=== PATIENT | female | born 1950 | race Caucasian/White ===

== ENCOUNTER 2019-07-16 10:44 | Emergency (ER) | payer MEDICARE ==
[2019-07-16 10:59] VITALS: BP 156/64; PULSE 68
--- NOTE | 2019-07-16 11:06 | EDM.PDOC ---
ED HPI GENERAL MEDICAL PROBLEM - General Chief Complaint: General Stated Complaint: RT SHOULDER INJURY Time Seen by Provider: 07/16/19 11:02 Source of Information: Reports: Patient, Family, RN Notes Reviewed History Limitations: Reports: No Limitations - History of Present Illness INITIAL COMMENTS - FREE TEXT/NARRATIVE: 69-year-old female presents emergency department today following a fall at home , she recently had shoulder surgery done on June 25 to her right shoulder unfortunately she tripped on something at home and fell into the wall injuring her right shoulder. No loss of consciousness complains of no other pain or injury Right Shoulder Pain Score (Numeric/FACES): 6 - Related Data Allergies Allergy/AdvReac Type Severity Reaction Status Date / Time Epqsdht-Edt-Rnp Reductase Allergy Severe Anaphylactic Verified 12/07/18 12:52 Inhibitor Shock simvastatin Allergy Rash Verified 12/07/18 12:07 Sulfa (Sulfonamide Allergy Rash Verified 12/07/18 12:07 Antibiotics) cyclobenzaprine AdvReac Dizziness Verified 12/07/18 12:52 [From Flexeril] hydrocodone AdvReac Confusion Verified 12/07/18 12:07 Home Meds: Home Meds Acetaminophen [Pain Relief Extra Strength] 1,000 mg PO Q6H PRN 07/29/14 [History ] Aspirin [Adult Low Dose Aspirin EC] 81 mg PO DAILY 07/29/14 [History] glipiZIDE [Glipizide] 5 mg PO DAILY 07/29/14 [History] Levothyroxine [Synthroid] 100 mcg PO ACBREAKFAST 06/05/16 [History] Lisinopril 10 mg PO DAILY 06/05/16 [History] metFORMIN [Glucophage] 500 mg PO BIDMEALS 03/18/17 [History] Diazepam [Valium] 5 mg PO ASDIRECTED PRN 11/27/18 [History] Gabapentin [Neurontin] 400 mg PO BEDTIME PRN 11/27/18 [History] Latanoprost/Pf [Latanoprost 0.005% Eye Drop] 1 drop EYEBOTH DAILY 11/27/18 [ History] [place]-3 Fatty Acids [[place]-3] 1,000 mg PO DAILY 11/27/18 [History] Sennosides/Docusate Sodium [Sennosides-Docusate Sodium] 2 tab PO BID PRN [History] Timolol Maleate [Timoptic 0.5% Opth Soln] 1 drop EYEBOTH DAILY 11/27/18 [History ] Past Medical History HEENT History: Reports: Glaucoma Cardiovascular History: Reports: Hypertension Genitourinary History: Reports: Other (See Below) Other Genitourinary History: elevated enzymes secondary to metformin use [employer]ENTICE History: Reports: Other (See Below) 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 Musculoskeletal History: Reports: Arthritis, Osteoarthritis Endocrine/Metabolic History: Reports: Diabetes, Type II, Other (See Below) Other Endocrine/Metabolic History: tyroid disease - Infectious Disease History Infectious Disease History: Reports: Chicken Pox, Measles, Mumps - Past Surgical History HEENT Surgical History: Reports: Tonsillectomy GI Surgical History: Reports: Cholecystectomy Musculoskeletal Surgical History: Reports: Knee Replacement Dermatological Surgical History: Reports: None Social & Family History - Family History HEENT: Reports: Cataract, Glaucoma Cardiac: Reports: Heart Failure : Reports: Cystic Kidney Disease Musculoskeletal: Reports: Arthritis Oncologic: Reports: Brain, Colon - Tobacco Use Smoking Status *Q: Never Smoker - Caffeine Use Caffeine Use: Reports: Coffee - Recreational Drug Use Recreational Drug Use: No ED ROS GENERAL - Review of Systems Review Of Systems: See Below Constitutional: Reports: No Symptoms Respiratory: Reports: No Symptoms Cardiovascular: Reports: No Symptoms GI/Abdominal: Reports: No Symptoms Musculoskeletal: Reports: Shoulder Pain ED EXAM, GENERAL - Physical Exam Exam: See Below Exam Limited By: No Limitations General Appearance: Alert, WD/WN, No Apparent Distress Respiratory/Chest: No Respiratory Distress Peripheral Pulses: 2+: Radial (R) Extremities: Normal Inspection, Non-Tender, Limited Range of Motion Course - Vital Signs Last Recorded V/S: Last Vital Signs Temp 95.9 F 07/16/19 10:58 Pulse 68 07/16/19 10:58 Resp 16 07/16/19 10:58 BP 156/64 H 07/16/19 10:58 Pulse Ox 100 07/16/19 10:58 Departure - Departure Time of Disposition: 12:08 Disposition: Home, Self-Care 01 Condition: Fair Clinical Impression: Contusion of right shoulder Qualifiers: Encounter type: initial encounter Qualified Code(s): S40.011A - Contusion of right shoulder, initial encounter - Discharge Information Referrals: Orestes Mcgovern MD [Primary Care Provider] - Forms: ED Department Discharge Care Plan Goals: Continue to use her pain medications aren't prescribed, Please followup with your primary care provider in 3-5 days if not better, please call return to the emergency department with worsening of symptoms. Keep your follow-up appointment with orthopedics - Assessment/Plan Plan: Assessment Acuity = acute Site and laterality = right shoulder contusion Etiology = secondary to fall Manifestations = none Location of injury = Home Lab values = x-ray reveals no acute process Plan She does have a follow-up with orthopedics next week, continue to use her pain medication as prescribed This note was dictated using [employer] recognition software please call with any questions on syntax or grammar.
--- NOTE | 2019-07-16 12:05 | CRLCR ---
Indication: Injury and pain Technique: Right shoulder 2 views Comparison: None Findings: Bones: Alignment is normal. No fractures or bone lesions. 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 Arthritis is in the AC joint. Soft tissues: Unremarkable. Impression: No sign of acute injury. Dictated by Miquel Barr MD @ Jul 16 2019 11:59AM Signed by Dr. Miquel Barr @ Jul 16 2019 12:04PM
== END 2019-07-16 12:39 | disposition home or self-care (01) ==
LOC: JP.ED 10:44
DX: S40.011A Contusion of right shoulder, initial encounter (principal); I10 Essential (primary) hypertension; E11.9 Type 2 diabetes mellitus without complications; Z88.8 Allergy status to other drugs, medicaments and biological substances; Z88.2 Allergy status to sulfonamides; Z88.5 Allergy status to narcotic agent; Z79.82 Long term (current) use of aspirin; Z79.84 Long term (current) use of oral hypoglycemic drugs; Z79.899 Other long term (current) drug therapy; W01.0XXA Fall on same level from slipping, tripping and stumbling without subsequent striking against object, initial encounter; Y92.009 Unspecified place in unspecified non-institutional (private) residence as the place of occurrence of the external cause
CPT/HCPCS: 73030-RT; 99282; 99283-25

== ENCOUNTER 2023-08-15 13:21 | Inpatient (IN) | payer MEDICARE ==
[2023-08-15 13:43] LABS: BASOPHILS ABSOLUTE AUTO 0.04 K/uL (0.00-0.10); BASOPHILS PERCENT AUTO 0.7 % (0.1-1.3); EOSINOPHILS ABSOLUTE AUTO 0.06 K/uL (0.00-0.40); HEMATOCRIT 27.5 % (34.3-46.0); HEMOGLOBIN 7.8 g/dL (11.2-15.5); IMMATURE GRAN ABSOLUTE AUTO 0.07 K/uL (0.00-0.23); IMMATURE GRAN PERCENT AUTO 1.1 % (0.0-0.7); LYMPHOCYTES ABSOLUTE AUTO 0.74 K/uL (0.8-3.3); LYMPHOCYTES PERCENT AUTO 12.2 % (11.4-47.7); MEAN CORPUSCULAR HEMOGLOBIN 19.5 pg (31.6-35.5); MEAN CORPUSCULAR HGB CONC 28.4 g/dL (31.6-35.5); MEAN CORPUSCULAR VOLUME 68.9 fL (81.4-99.0); MONOCYTES ABSOLUTE AUTO 0.52 K/uL (0.20-0.90); MONOCYTES PERCENT AUTO 8.5 % (3.3-12.6); NEUTROPHILS ABSOLUTE AUTO 4.66 K/uL (1.0-7.6); NEUTROPHILS PERCENT AUTO 76.5 % (40.0-78.1); PLATELET COUNT,PLT 314 K/uL (130-375); WHITE BLOOD CELL COUNT,WBC 6.1 K/uL (3.2-11.0)
[2023-08-15 13:59] LABS: INR 3.2; PROTHROMBIN TIME 30.2 sec (9.2-10.6)
[2023-08-15 14:04] LABS: A/G RATIO 1.1 (1.2-2.2); ALANINE AMINOTRANSFERASE,ALT 13 U/L (12-78); ALBUMIN 3.6 g/dL (3.4-5.0); ALKALINE PHOSPHATASE 58 U/L (46-116); ANION GAP 15.8 mmol/L (5.0-14.0); ASPARTATE AMNIOTRANSFERASE,AST 22 U/L (15-37); BILIRUBIN TOTAL 0.7 mg/dL (0.2-1.0); BLOOD UREA NITROGEN,BUN 15 mg/dL (7-18); CALCIUM 8.6 mg/dL (8.5-10.1); CARBON DIOXIDE,CO2 27 mmol/L (21-32); CHLORIDE,CL 100 mmol/L (100-108); CREATININE 0.9 mg/dL (0.6-1.0); ESTIMATED GFR 67 mL/min (>60); GLUCOSE RANDOM 100 mg/dL (74-106); POTASSIUM,K 3.8 mmol/L (3.6-5.2); SODIUM,NA 139 mmol/L (140-148)
[2023-08-15 14:08] LABS: RED BLOOD CELL COUNT 3.99 M/uL (3.77-5.24)
[2023-08-15 14:19] LABS: IRON,FE 15 ug/dL (50-170); PERCENT FE SATURATION 3 % (20-55); TOTAL IRON BINDING CAPACITY 436 ug/dl (250-450)
[2023-08-15 14:42] LABS: APPEARANCE,URINE SLIGHTLY CLOUDY (CLEAR); BACTERIA,URINE MANY; BILIRUBIN,URINE NEGATIVE (NEGATIVE); COLOR,URINE YELLOW (YELLOW); EPITHELIAL CELLS,URINE RARE; GLUCOSE,URINE NEGATIVE (NEGATIVE); KETONES,URINE TRACE mg/dL (NEGATIVE); LEUKOCYTE ESTERASE,URINE TRACE (NEGATIVE); NITRITE,URINE POSITIVE (NEGATIVE); OCCULT BLOOD,URINE TRACE-INTACT (NEGATIVE); PROTEIN,URINE NEGATIVE (NEGATIVE); RBC,URINE 0-5 (0-5); UROBILINOGEN,URINE 0.2 EU/dL (0.2-1.0)
[2023-08-15 14:43] LABS: AMORPHOUS SEDIMENT,URINE NOT SEEN; MUCUS,URINE NOT SEEN
[2023-08-15] MEDS ORDERED: Sodium Chloride 0.9% 10 ML Syringe FLUSH PRN (15:50)
[2023-08-15] MEDS ORDERED: Glucose Gel 15 GM in 37.5 GM Tube PO PRN (15:50)
[2023-08-15] MEDS ORDERED: 50% Dextrose in Water 50 ML Syringe IV PRN (15:50)
[2023-08-15] MEDS ORDERED: Ondansetron 4 MG/2 ML SDV IV PRN (15:50)
[2023-08-15] MEDS ORDERED: Gabapentin 300 MG Cap PO PRN (15:53)
[2023-08-15] MEDS ORDERED: Sodium Ferric Gluconate Cmplex 250 MG in Sodium Chloride 0.9% 100 ML IV ONE (16:30)
[2023-08-15] MEDS: Ferrous Sulfate 325 MG Tab PO SCH (16:57)
[2023-08-15] MEDS: metFORMIN 500 MG Tab PO SCH (16:58)
[2023-08-15] MEDS: Pantoprazole 40 MG Vial IV SCH (17:00)
[2023-08-15] MEDS: Insulin Lispro 100 Unit/ML 3 ML KwikPen SUBCUT SCH ×2 (17:41→20:56)
[2023-08-15] MEDS: Sodium Chloride 0.9% 1,000 ML IV SCH (18:16)
[2023-08-15] MEDS: Acetaminophen 325 MG Tab PO PRN (22:59)
[2023-08-16] MEDS: Sodium Chloride 0.9% 1,000 ML IV SCH (01:54)
[2023-08-16] MEDS: Pantoprazole 40 MG Vial IV SCH ×2 (04:48→14:57)
[2023-08-16 04:58] LABS: HEMATOCRIT 31.3 % (34.3-46.0); HEMOGLOBIN 9.1 g/dL (11.2-15.5); MEAN CORPUSCULAR HEMOGLOBIN 20.8 pg (31.6-35.5); MEAN CORPUSCULAR HGB CONC 29.1 g/dL (31.6-35.5); MEAN CORPUSCULAR VOLUME 71.6 fL (81.4-99.0); RED BLOOD CELL COUNT 4.37 M/uL (3.77-5.24)
[2023-08-16 05:12] LABS: CALCIUM 8.1 mg/dL (8.5-10.1); CREATININE 0.9 mg/dL (0.6-1.0); EST CRCL DRUG DOSING (CG) 46.64 mL/min; POTASSIUM,K 3.2 mmol/L (3.6-5.2)
[2023-08-16 05:15] LABS: INR 2.4; PROTHROMBIN TIME 23.1 sec (9.2-10.6)
[2023-08-16 05:18] LABS: ANION GAP 15.2 mmol/L (5.0-14.0)
[2023-08-16] MEDS: Amoxicillin/Clavulanate K 500-125 MG Tab PO SCH ×2 (06:21→17:41)
[2023-08-16] MEDS ORDERED: Levothyroxine 100 MCG Tab PO SCH (07:30)
[2023-08-16] MEDS: Ferrous Sulfate 325 MG Tab PO SCH ×2 (08:00→17:41)
[2023-08-16] MEDS: metFORMIN 500 MG Tab PO SCH ×2 (08:00→17:41)
[2023-08-16] MEDS: Levothyroxine 112 MCG Tab PO SCH (08:00)
[2023-08-16] MEDS: Aspirin 81 MG Tab.EC PO SCH (08:00)
[2023-08-16] MEDS: Metoprolol Succinate 25 MG Tab.ER PO SCH (08:01)
[2023-08-16] MEDS: Timolol Maleate 0.5% Ophth Soln 5 ML Bottle EYEBOTH SCH (08:01)
[2023-08-16] MEDS: Insulin Lispro 100 Unit/ML 3 ML KwikPen SUBCUT SCH ×4 (08:06→21:14)
[2023-08-16] MEDS ORDERED: Potassium Chloride 20 MEQ Tab.ER PO ONE (08:30)
[2023-08-16] MEDS ORDERED: Sodium Ferric Gluconate Cmplex 250 MG in Sodium Chloride 0.9% 100 ML IV ONE (09:00)
[2023-08-16] MEDS ORDERED: Lisinopril 10 MG Tab PO SCH (09:00)
[2023-08-16] MEDS ORDERED: Lisinopril 5 MG Tab PO SCH (09:00)
[2023-08-16] MEDS ORDERED: Phytonadione 1 MG in Sodium Chloride 0.9% 50 ML IV ONE (11:15)
[2023-08-16] MEDS: Acetaminophen 325 MG Tab PO PRN (18:10)
[2023-08-16] MEDS ORDERED: Gabapentin 300 MG Cap PO SCH (21:00)
[2023-08-17] MEDS: Pantoprazole 40 MG Vial IV SCH (04:13)
[2023-08-17 05:24] LABS: HEMATOCRIT 28.4 % (34.3-46.0); HEMOGLOBIN 8.2 g/dL (11.2-15.5); MEAN CORPUSCULAR VOLUME 72.6 fL (81.4-99.0); RED BLOOD CELL COUNT 3.91 M/uL (3.77-5.24); WHITE BLOOD CELL COUNT,WBC 6.9 K/uL (3.2-11.0)
[2023-08-17 05:38] LABS: CALCIUM 8.4 mg/dL (8.5-10.1); EST CRCL DRUG DOSING (CG) 41.97 mL/min; POTASSIUM,K 3.5 mmol/L (3.6-5.2)
[2023-08-17 05:39] LABS: INR 1.5; PROTHROMBIN TIME 14.9 sec (9.2-10.6)
[2023-08-17 05:47] LABS: ANION GAP 14.5 mmol/L (5.0-14.0)
[2023-08-17] MEDS: Amoxicillin/Clavulanate K 500-125 MG Tab PO SCH (05:52)
[2023-08-17 06:09] LABS: MEAN CORPUSCULAR HGB CONC 28.9 g/dL (31.6-35.5)
[2023-08-17] MEDS: Insulin Lispro 100 Unit/ML 3 ML KwikPen SUBCUT SCH ×2 (07:42→12:19)
[2023-08-17] MEDS: Levothyroxine 112 MCG Tab PO SCH (07:43)
[2023-08-17] MEDS ORDERED: Potassium Chloride 20 MEQ Tab.ER PO ONE (09:00)
[2023-08-17] MEDS: Ferrous Sulfate 325 MG Tab PO SCH (09:09)
[2023-08-17] MEDS: Metoprolol Succinate 25 MG Tab.ER PO SCH (09:09)
[2023-08-17] MEDS: metFORMIN 500 MG Tab PO SCH (09:09)
[2023-08-17] MEDS: Aspirin 81 MG Tab.EC PO SCH (09:10)
[2023-08-17] MEDS: Timolol Maleate 0.5% Ophth Soln 5 ML Bottle EYEBOTH SCH (09:10)
[2023-08-17 11:12] VITALS: BP 141/72; PULSE 88
== END 2023-08-17 15:45 | disposition home or self-care (01) | DRG 812 ==
LOC: JP.ED 13:21 → JP.MS 15:16 → OBSVTOIN 08-16 10:41
PROVIDERS: ADMIT Hospitalist; ATTEND Hospitalist
DX: D50.9 Iron deficiency anemia, unspecified (principal); I48.0 Paroxysmal atrial fibrillation; N30.90 Cystitis, unspecified without hematuria; H40.9 Unspecified glaucoma; I12.9 Hypertensive chronic kidney disease with stage 1 through stage 4 chronic kidney disease, or unspecified chronic kidney disease; N18.9 Chronic kidney disease, unspecified; E11.22 Type 2 diabetes mellitus with diabetic chronic kidney disease; E03.9 Hypothyroidism, unspecified; Z96.653 Presence of artificial knee joint, bilateral; Z96.642 Presence of left artificial hip joint; Z79.01 Long term (current) use of anticoagulants; Z79.899 Other long term (current) drug therapy; Z79.82 Long term (current) use of aspirin; Z79.84 Long term (current) use of oral hypoglycemic drugs; Z88.2 Allergy status to sulfonamides; Z88.8 Allergy status to other drugs, medicaments and biological substances; Z91.041 Radiographic dye allergy status; Z88.5 Allergy status to narcotic agent; Z90.89 Acquired absence of other organs; Z90.49 Acquired absence of other specified parts of digestive tract; Z11.52 Encounter for screening for COVID-19
CPT/HCPCS: 36415; 36430; 70450; 70450-26; 73502-26-LT; 73502-LT; 80048; 80053; 81001; 82272; 82947; 83550; 85018; 85025; 85027; 85610; 86850; 86900; 86901; 86920; 86922; 87086; 87088; 87186; 97161-GP; 99222; 99232; 99238; A9270-GY; C9113; J1815; J2916; J3430; J3490; J7030; P9016; U0002

== ENCOUNTER 2023-08-20 09:37 | Day surgery (SDC) | payer MEDICARE ==
[2023-08-20 09:44] LABS: HEMATOCRIT 36.7 % (34.3-46.0); HEMOGLOBIN 10.4 g/dL (11.2-15.5); MEAN CORPUSCULAR HEMOGLOBIN 21.3 pg (31.6-35.5); MEAN CORPUSCULAR HGB CONC 28.3 g/dL (31.6-35.5); MEAN CORPUSCULAR VOLUME 75.1 fL (81.4-99.0); RED BLOOD CELL COUNT 4.89 M/uL (3.77-5.24); WHITE BLOOD CELL COUNT,WBC 9.3 K/uL (3.2-11.0)
[2023-08-20] MEDS ORDERED: Propofol 200 MG/20 ML SDV ONE (09:53)
[2023-08-20] MEDS ORDERED: fentaNYL 50 MCG/ML SDV ONE (09:53)
[2023-08-20] MEDS ORDERED: Lactated Ringers 1,000 ML IV SCH (10:00)
[2023-08-20 10:02] LABS: INR 1.3; PROTHROMBIN TIME 12.7 sec (9.2-10.6)
[2023-08-20 10:25] LABS: A/G RATIO 1.2 (1.2-2.2); ALANINE AMINOTRANSFERASE,ALT 18 U/L (12-78); ALBUMIN 4.3 g/dL (3.4-5.0); ALKALINE PHOSPHATASE 62 U/L (46-116); ANION GAP 19.3 mmol/L (5.0-14.0); ASPARTATE AMNIOTRANSFERASE,AST 31 U/L (15-37); BILIRUBIN TOTAL 1.1 mg/dL (0.2-1.0); BLOOD UREA NITROGEN,BUN 6 mg/dL (7-18); CALCIUM 9.1 mg/dL (8.5-10.1); CARBON DIOXIDE,CO2 25 mmol/L (21-32); CHLORIDE,CL 100 mmol/L (100-108); EST CRCL DRUG DOSING (CG) 41.97 mL/min; ESTIMATED GFR 59 mL/min (>60); GLUCOSE RANDOM 76 mg/dL (74-106); POTASSIUM,K 3.3 mmol/L (3.6-5.2); PROTEIN TOTAL,TP 7.8 g/dL (6.4-8.2); SODIUM,NA 141 mmol/L (140-148)
[2023-08-20] MEDS ORDERED: Potassium Chloride 10 MEQ in Premix Bag 1 BAG IV ONE (10:58)
[2023-08-20] MEDS: Potassium Chloride 10 MEQ in Premix Bag 1 BAG IV SCH ×2 (12:30→14:12)
[2023-08-20 14:14] VITALS: BP 159/71; PULSE 97
== END 2023-08-20 15:35 | disposition home or self-care (01) ==
LOC: JP.SDS 09:37
PROVIDERS: ATTEND Student in an Organized Health Care Education/Training Program
DX: K29.50 Unspecified chronic gastritis without bleeding (principal); K63.5 Polyp of colon; K44.9 Diaphragmatic hernia without obstruction or gangrene; K31.7 Polyp of stomach and duodenum; K57.30 Diverticulosis of large intestine without perforation or abscess without bleeding
CPT/HCPCS: 36415; 80053; 85027; 85610; 93005; J2704; J3010; J3480; J7120

== ENCOUNTER 2023-11-27 04:07 | Emergency (ER) | payer MEDICARE ==
[2023-11-27 04:14] LABS: BASOPHILS ABSOLUTE AUTO 0.06 K/uL (0.00-0.10); BASOPHILS PERCENT AUTO 0.8 % (0.1-1.3); EOSINOPHILS ABSOLUTE AUTO 0.25 K/uL (0.00-0.40); EOSINOPHILS PERCENT AUTO 3.4 % (0.0-5.4); HEMATOCRIT 35.3 % (34.3-46.0); HEMOGLOBIN 11.7 g/dL (11.2-15.5); IMMATURE GRAN ABSOLUTE AUTO 0.03 K/uL (0.00-0.23); IMMATURE GRAN PERCENT AUTO 0.4 % (0.0-0.7); LYMPHOCYTES ABSOLUTE AUTO 1.19 K/uL (0.8-3.3); LYMPHOCYTES PERCENT AUTO 16.1 % (11.4-47.7); MEAN CORPUSCULAR HEMOGLOBIN 30.3 pg (31.6-35.5); MEAN CORPUSCULAR HGB CONC 33.1 g/dL (31.6-35.5); MEAN CORPUSCULAR VOLUME 91.5 fL (81.4-99.0); MONOCYTES PERCENT AUTO 8.1 % (3.3-12.6); NEUTROPHILS ABSOLUTE AUTO 5.26 K/uL (1.0-7.6); NEUTROPHILS PERCENT AUTO 71.2 % (40.0-78.1); PLATELET COUNT,PLT 137 K/uL (130-375); RED BLOOD CELL COUNT 3.86 M/uL (3.77-5.24); WHITE BLOOD CELL COUNT,WBC 7.4 K/uL (3.2-11.0)
[2023-11-27 04:39] LABS: BLOOD UREA NITROGEN,BUN 14 mg/dL (7-18); CALCIUM 8.6 mg/dL (8.5-10.1); CARBON DIOXIDE,CO2 28 mmol/L (21-32); CHLORIDE,CL 104 mmol/L (100-108); CREATININE 1.2 mg/dL (0.6-1.0); ESTIMATED GFR 47 mL/min (>60); GLUCOSE RANDOM 127 mg/dL (74-106); POTASSIUM,K 3.5 mmol/L (3.6-5.2); SODIUM,NA 144 mmol/L (140-148)
[2023-11-27 04:46] LABS: INR 4.8
[2023-11-27 04:53] LABS: ANION GAP 15.5 mmol/L (5.0-14.0)
[2023-11-27] MEDS: Tranexamic Acid 1,000 MG/10 ML Vial IVPUSH ONE (04:54)
[2023-11-27] MEDS: Pantoprazole 40 MG Vial IVPUSH ONE (04:54)
[2023-11-27] MEDS: Ondansetron 4 MG/2 ML SDV IVPUSH ONE (05:15)
[2023-11-27] MEDS: Ondansetron 4 MG/2 ML SDV ONE (05:39)
[2023-11-27] MEDS: Phytonadione 5 MG in Sodium Chloride 0.9% 50 ML IV ONE (05:47)
[2023-11-27] MEDS: Sodium Chloride 0.9% 1,000 ML IV SCH (06:06)
[2023-11-27 06:15] LABS: BASOPHILS ABSOLUTE AUTO 0.02 K/uL (0.00-0.10); BASOPHILS PERCENT AUTO 0.5 % (0.1-1.3); EOSINOPHILS ABSOLUTE AUTO 0.07 K/uL (0.00-0.40); EOSINOPHILS PERCENT AUTO 1.8 % (0.0-5.4); HEMATOCRIT 33.6 % (34.3-46.0); HEMOGLOBIN 11.1 g/dL (11.2-15.5); IMMATURE GRAN ABSOLUTE AUTO 0.02 K/uL (0.00-0.23); IMMATURE GRAN PERCENT AUTO 0.5 % (0.0-0.7); LYMPHOCYTES ABSOLUTE AUTO 0.69 K/uL (0.8-3.3); LYMPHOCYTES PERCENT AUTO 17.3 % (11.4-47.7); MEAN CORPUSCULAR HEMOGLOBIN 30.3 pg (31.6-35.5); MEAN CORPUSCULAR VOLUME 91.8 fL (81.4-99.0); MONOCYTES ABSOLUTE AUTO 0.25 K/uL (0.20-0.90); MONOCYTES PERCENT AUTO 6.3 % (3.3-12.6); NEUTROPHILS ABSOLUTE AUTO 2.95 K/uL (1.0-7.6); NEUTROPHILS PERCENT AUTO 73.6 % (40.0-78.1); PLATELET COUNT,PLT 138 K/uL (130-375); RED BLOOD CELL COUNT 3.66 M/uL (3.77-5.24)
[2023-11-27] MEDS ORDERED: Lidocaine 1% 2 ML ONE (06:23)
[2023-11-27 07:17] VITALS: BP 144/66; PULSE 106
== END 2023-11-27 07:20 | disposition other institution (70) ==
LOC: JP.ED 04:07
DX: K92.2 Gastrointestinal hemorrhage, unspecified (principal); I12.9 Hypertensive chronic kidney disease with stage 1 through stage 4 chronic kidney disease, or unspecified chronic kidney disease; N18.9 Chronic kidney disease, unspecified; E11.22 Type 2 diabetes mellitus with diabetic chronic kidney disease; Z79.84 Long term (current) use of oral hypoglycemic drugs; Z79.899 Other long term (current) drug therapy; Z88.5 Allergy status to narcotic agent; Z88.8 Allergy status to other drugs, medicaments and biological substances; Z88.2 Allergy status to sulfonamides
CPT/HCPCS: 36415; 80048; 85025; 85610; 86850; 86900; 86901; 96361; 96365; 96375; 99285; C9113; J2405; J3430; J3490; J7030

== ENCOUNTER 2024-08-27 08:05 | Day surgery (SDC) | payer MEDICARE ==
[2024-08-27] MEDS ORDERED: fentaNYL 50 MCG/ML SDV ONE (08:37)
[2024-08-27] MEDS ORDERED: Propofol 200 MG/20 ML SDV ONE (08:37)
[2024-08-27] MEDS ORDERED: Lidocaine 1% 2 ML ONE (08:59)
[2024-08-27] MEDS: Lactated Ringers 1,000 ML IV SCH (09:00)
[2024-08-27 10:43] VITALS: BP 122/66; PULSE 77
== END 2024-08-27 10:45 | disposition home or self-care (01) ==
LOC: JP.SDS 08:05
PROVIDERS: ATTEND Surgery
DX: Z12.11 Encounter for screening for malignant neoplasm of colon (principal); D12.2 Benign neoplasm of ascending colon; K57.30 Diverticulosis of large intestine without perforation or abscess without bleeding; I12.9 Hypertensive chronic kidney disease with stage 1 through stage 4 chronic kidney disease, or unspecified chronic kidney disease; N18.9 Chronic kidney disease, unspecified
CPT/HCPCS: 45380; J2704; J3010; J7120

== ENCOUNTER 2025-07-25 14:41 | Emergency (ER) | payer MEDICARE ==
[2025-07-25 15:11] LABS: BASOPHILS ABSOLUTE AUTO 0.03 K/uL (0.00-0.10); BASOPHILS PERCENT AUTO 0.3 % (0.1-1.3); EOSINOPHILS ABSOLUTE AUTO 0.01 K/uL (0.00-0.40); EOSINOPHILS PERCENT AUTO 0.1 % (0.0-5.4); IMMATURE GRAN ABSOLUTE AUTO 0.09 K/uL (0.00-0.23); IMMATURE GRAN PERCENT AUTO 0.9 % (0.0-0.7); LYMPHOCYTES ABSOLUTE AUTO 0.56 K/uL (0.8-3.3); LYMPHOCYTES PERCENT AUTO 5.9 % (11.4-47.7); MONOCYTES ABSOLUTE AUTO 0.62 K/uL (0.20-0.90); MONOCYTES PERCENT AUTO 6.5 % (3.3-12.6); NEUTROPHILS ABSOLUTE AUTO 8.17 K/uL (1.0-7.6); NEUTROPHILS PERCENT AUTO 86.3 % (40.0-78.1); PLATELET COUNT,PLT 269 K/uL (130-375); RED BLOOD CELL COUNT 3.07 M/uL (3.77-5.24); WHITE BLOOD CELL COUNT,WBC 9.5 K/uL (3.2-11.0)
[2025-07-25 15:19] LABS: APPEARANCE,URINE CLOUDY (CLEAR); GLUCOSE,URINE NEGATIVE (NEGATIVE); OCCULT BLOOD,URINE NEGATIVE (NEGATIVE)
[2025-07-25 15:20] LABS: A/G RATIO 0.9 (1.2-2.2); ALANINE AMINOTRANSFERASE,ALT 17 U/L (12-78); ASPARTATE AMNIOTRANSFERASE,AST 19 U/L (15-37); BILIRUBIN TOTAL 1.3 mg/dL (0.2-1.0); BLOOD UREA NITROGEN,BUN 25 mg/dL (7-18); CARBON DIOXIDE,CO2 28 mmol/L (21-32); CHLORIDE,CL 100 mmol/L (100-108); CREATININE 1.0 mg/dL (0.6-1.0); EST CRCL DRUG DOSING (CG) 42.39 mL/min; ESTIMATED GFR 58 mL/min (>60); GLUCOSE RANDOM 146 mg/dL (74-106); POTASSIUM,K 4.3 mmol/L (3.6-5.2); PROTEIN TOTAL,TP 7.4 g/dL (6.4-8.2); SODIUM,NA 138 mmol/L (140-148)
[2025-07-25 15:25] LABS: SQUAMOUS EPITHELIAL CELLS,UR MANY /HPF; UROTHELIAL CELLS,URINE NOT SEEN /HPF
[2025-07-25 15:34] LABS: INR 2.3
[2025-07-25 17:14] VITALS: BP 168/97; PULSE 103
== END 2025-07-25 17:48 | disposition home or self-care (01) ==
LOC: JP.ED 14:41
DX: I48.91 Unspecified atrial fibrillation (principal); E78.00 Pure hypercholesterolemia, unspecified; I12.9 Hypertensive chronic kidney disease with stage 1 through stage 4 chronic kidney disease, or unspecified chronic kidney disease; N18.9 Chronic kidney disease, unspecified; E11.9 Type 2 diabetes mellitus without complications; E03.9 Hypothyroidism, unspecified; Z88.2 Allergy status to sulfonamides; Z88.8 Allergy status to other drugs, medicaments and biological substances; Z79.890 Hormone replacement therapy; Z79.84 Long term (current) use of oral hypoglycemic drugs; Z79.899 Other long term (current) drug therapy; Z79.01 Long term (current) use of anticoagulants; Z86.16 Personal history of COVID-19; W18.39XA Other fall on same level, initial encounter; Y93.89 Activity, other specified
CPT/HCPCS: 36415; 71045; 80053; 81001; 85025; 85610; 93005; 96360; 99285; A9270; J7030; 93010; 99284

== ENCOUNTER 2025-09-07 13:04 | Emergency (ER) | payer MEDICARE ==
[2025-09-07 13:41] LABS: BASOPHILS ABSOLUTE AUTO 0.03 K/uL (0.00-0.10); BASOPHILS PERCENT AUTO 0.4 % (0.1-1.3); EOSINOPHILS ABSOLUTE AUTO 0.14 K/uL (0.00-0.40); EOSINOPHILS PERCENT AUTO 1.7 % (0.0-5.4); IMMATURE GRAN ABSOLUTE AUTO 0.09 K/uL (0.00-0.23); IMMATURE GRAN PERCENT AUTO 1.1 % (0.0-0.7); LYMPHOCYTES ABSOLUTE AUTO 0.66 K/uL (0.8-3.3); LYMPHOCYTES PERCENT AUTO 7.9 % (11.4-47.7); MONOCYTES ABSOLUTE AUTO 0.65 K/uL (0.20-0.90); MONOCYTES PERCENT AUTO 7.8 % (3.3-12.6); NEUTROPHILS ABSOLUTE AUTO 6.76 K/uL (1.0-7.6); NEUTROPHILS PERCENT AUTO 81.1 % (40.0-78.1); PLATELET COUNT,PLT 113 K/uL (130-375); RED BLOOD CELL COUNT 3.05 M/uL (3.77-5.24); WHITE BLOOD CELL COUNT,WBC 8.3 K/uL (3.2-11.0)
[2025-09-07 13:54] LABS: INR 1.5
[2025-09-07 13:57] LABS: BLOOD UREA NITROGEN,BUN 28.0 mg/dL (7-18); CARBON DIOXIDE,CO2 29.0 mmol/L (21-32); CHLORIDE,CL 103.0 mmol/L (100-108); CREATININE 1.0 mg/dL (0.6-1.0); EST CRCL DRUG DOSING (CG) 42.39 mL/min; ESTIMATED GFR 58.0 mL/min (>60); GLUCOSE RANDOM 107.0 mg/dL (74-106); POTASSIUM,K 4.4 mmol/L (3.6-5.2); SODIUM,NA 141.0 mmol/L (140-148)
[2025-09-07 14:33] VITALS: BP 138/73; PULSE 99
== END 2025-09-07 15:24 | disposition home or self-care (01) ==
LOC: JP.ED 13:04
DX: S30.0XXA Contusion of lower back and pelvis, initial encounter (principal); I48.91 Unspecified atrial fibrillation; I10 Essential (primary) hypertension; E78.00 Pure hypercholesterolemia, unspecified; Z86.16 Personal history of COVID-19; Z90.710 Acquired absence of both cervix and uterus; Z79.899 Other long term (current) drug therapy; Z79.84 Long term (current) use of oral hypoglycemic drugs; Z79.01 Long term (current) use of anticoagulants; Z88.8 Allergy status to other drugs, medicaments and biological substances; Z88.2 Allergy status to sulfonamides; Z88.5 Allergy status to narcotic agent; W08.XXXA Fall from other furniture, initial encounter
CPT/HCPCS: 36415; 70450; 80048; 80307; 85025; 85610; 99284; A9270